=== PATIENT | female | born 1935 | race Caucasian/White ===

== ENCOUNTER 2018-04-21 17:09 | Inpatient (IN) | payer MEDICARE ==
[2018-04-21] MEDS ORDERED: Bisacodyl 5 MG TAB PO PRN (17:51)
[2018-04-21] MEDS ORDERED: Senokot 8.6 MG TAB PO PRN (17:51)
[2018-04-21] MEDS: Acetaminophen 500 MG TAB PO SCH ×2 (18:30→23:29)
[2018-04-21] MEDS: Famotidine 20 MG TAB PO SCH (21:52)
[2018-04-21] MEDS: Cefuroxime Axetil 250 MG TAB PO SCH (21:52)
[2018-04-21] MEDS: traZODone HCl 50 MG TAB PO PRN (21:52)
[2018-04-22] MEDS: Acetaminophen 500 MG TAB PO SCH ×3 (05:23→17:14)
[2018-04-22] MEDS: Famotidine 20 MG TAB PO SCH ×2 (08:48→20:08)
[2018-04-22] MEDS: Multivit, Therapeutic 1 TAB PO SCH (08:48)
[2018-04-22] MEDS: Cefuroxime Axetil 250 MG TAB PO SCH ×2 (08:48→20:08)
[2018-04-22] MEDS: Ferrous Sulfate 325 MG TAB PO SCH (08:48)
[2018-04-22] MEDS: Calcium Carbonate + Vit D 1 TAB PO SCH (08:49)
--- NOTE | 2018-04-22 14:28 | HP ---
ATTENDING: Dr. Olga Gabriel PRIMARY CARE PHYSICIAN: Dr. Tran in [place]. REASON FOR ADMISSION: Skilled rehabilitation in [place] swing bed. HISTORY OF PRESENT ILLNESS/HOSPITAL COURSE: Ms. Mac is a very pleasant 82- year-old female who was transferred from [facility] in [place] to [place] for skilled rehab in [place] swing [facility]. The patient was recently admitted to [facility] for loss of consciousness that led to a fall. She reports that she was walking on stairs when she felt weak and woke up, had fallen down in the stairs. She was at that time in [place], [place] and was sent initially to the emergency room where she was found to have a fracture of the left wrist and had a splint. During that fall incident the patient also hit her head on the floor from a standing position. She was then told to see a primary doctor, Dr. Tran in a week or so. The patient during that time of incident also hit her head and had a CT scan and was told to have a subdural hematoma. She was initially observed in [place], [place] and was conservatively managed. She was sent home with recommendation to follow up with her PCP within a week. The patient found out when she came back home that her PCP was out on vacation thus she went to [facility] in [place] for further evaluation. She had a brain CT scan over at [facility] and was found to have an acute small anterior loculated left falcine hemorrhage measuring 14.[address] Lee was consulted for this. The patient was conservatively managed by neurosurgeon. At that time, the patient was also noted to have significant elevation of blood pressure that requires Cardizem drip and ICU observation. There was a Cardio consultation at that time given the history of frequent falls. She was seen by Dr. Ruby for Cardiology and echocardiogram was ordered which showed left ventricular systolic function. Otherwise, no other evidence of conduction disease. Carotid Doppler study was likewise ordered which showed no evidence of hemodynamically significant stenosis. A suspicion of orthostatic dizziness was highly considered by Cardiology versus possible overuse of narcotic or analgesics. Thus, the patient used only Tylenol in the hospital per patient's report due to the reported possible overuse on narcotics. After observation in the ICU the patient was eventually transferred to a regular room and did well. She underwent a splint swab and replacement of the left distal radius fracture and ulnar gutter splint for left distal radius metaphyseal fracture on 2017 that was done by LION Dill. The patient reports that she has a history of episodic dizzy spells described as lightheadedness noticeably with head movement. She reports that today that this is not new to her. She denies tinnitus or syncopal episode except for the one time fall as described above. The patient remains generally weak and deemed to benefit more for further rehab in [facility] prior to going back to the home environment. Prior to discharge, the patient was reported to have an episode of vomiting after she got transferred and felt dizzy. She was given antiemetic prior to discharge and did well. When admitted the patient reports she is feeling a lot better. No significant recurrence of nausea, vomiting nor abdominal pain. Denies chest pain or shortness of breath or pain with breathing. She is hemodynamically stable upon admission. PAST MEDICAL HISTORY: Hypertension, multiple fractures, chronic insomnia, GERD , anemia. PAST SURGICAL HISTORY: 1. 05/05/2015. Dr. Tomlinson performed da Samra right colectomy for a right colon, large right polyp mass. 2. 08/17/2015. Dr. 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 3. Dr. Zafar on 12/29/2015 did a right shoulder closed reduction of fracture dislocation. 4. 12/30/2015 the patient had a left thumb metacarpal and distal phalanx fracture, closed treatment with a splint and cast. 5. She has had a total abdominal hysterectomy and bilateral salpingo- oophorectomy, unrecalled date. 6. Pathology in her colon resection 05/05/2015 revealed TVA with free margins. The breast specimen revealed DCIS negative, multifocal ductal carcinoma in situ, TIS N0 M0. FAMILY HISTORY: Noncontributory. SOCIAL HISTORY: , nonsmoker, no alcohol, no illicit drug use except from prescription narcotics. MEDICATIONS: Acetaminophen 1000 mg p.o. q.6 hours, Bisacodyl Dulcolax 10 mg p.o. daily p.r.n., calcium carbonate 1 tab p.o. daily, cefdinir 250 mg p.o. q.12 hours for 7 days, famotidine 20 mg p.o. b.i.d., ferrous sulfate 325 mg p.o. daily, multivitamins 1 tab daily, pantoprazole 40 mg p.o. daily, sennoside 2 tablets at bedtime p.r.n., tramadol 50 hourly p.r.n., trazodone 50 mg p.o. q.8h. p.r.n. ALLERGIES: SULFA. REVIEW OF SYSTEMS: GENERAL: Denies fever, chills, reports general weakness, fatigue, no loss of appetite. HEENT: No acute visual changes or hearing changes. Reports chronic intermittent dizzy spells as per HPI. Denies tinnitus or hearing changes. RESPIRATORY: No cough, sputum production, bloody sputum, pain with breathing, wheezing, shortness of breath. CARDIAC: No chest pain, palpitations, dyspnea on exertion, PND, she reports intermittent leg edema. GASTROINTESTINAL: Reports episodic nausea and vomiting. Reports constipation. No abdominal pain, diarrhea, rectal bleeding. GENITOURINARY: No dysuria or hematuria. Reports frequency with urgency. NEURO: No focal numbness, focal weakness, no headaches. PSYCHIATRIC: Denies depressive symptoms, anxiety. Reports insomnia. SKIN: Denies ulcers, skin lesions or rash. HEMATOLOGY: Reports easy bruising and multiple bruises from the fall. MUSCULOSKELETAL: Reports joint pains, swelling. No myalgia. PHYSICAL EXAMINATION: VITAL SIGNS: Blood pressure 174/79, temperature 97.8, pulse 82, respirations 16 , and temperature 97 at room air. GENERAL: Patient is awake, alert, oriented x3, not in distress, generally weak looking, frail, elderly, comfortably lying in bed, in no acute distress. is at bedside. SKIN: Huge hematoma on the right side of the frontal region. HEENT: PERRLA. Intact EOM. Nonicteric sclerae. Oral mucosa is moist. Tongue in the midline. NECK: Supple. No LAD, no swelling. Full ROM. CHEST: Normal excursion, clear to auscultation bilaterally. CARDIAC: RRR. Normal S1 and S2. No murmurs. ABDOMEN: Obese, soft, nondistended, normoactive bowel sounds. Nontender. Negative CVA tenderness bilaterally. EXTREMITIES: No edema, no cyanosis. SKIN: Good skin turgor, multiple bruises from head to toe. PSYCHIATRIC: Appears calm, appropriate demeanor and affect, cooperative, interactive. NEUROLOGIC: Nonfocal. Gait unsteady, 1-2 man assist for transfers. LABORATORY AND TESTS: 1. Left hand x-ray, chronic changes in the first carpometacarpal joint space distal ulnar fracture. No definite fracture with regards to the bones in the hands or wrist 04/18/2018. 2. Left forearm, 2 views, distal ulnar fracture, possible hamate bone fracture. 3. Facial bone CT, no evidence of facial bone fracture. Mild basilar invagination probably chronic and stable in this patient. 4. Cervical CT, normal CT. Incidentally noted atherosclerotic calcification of the distal common carotid artery seen. 5. Brain CT; noncontrast, acute small anteriorly located left parafalcine hemorrhage measuring 14.5 mm. Subacute versus chronic. A small bifrontal subdural collections. Mild cerebral volume loss. Chronic small vessel ischemic changes. Large scalp hematoma posteriorly at the vertex. 6. Chest x-ray on 04/18/2018. No lobar consolidation, evidence of CHF. 7. MRI of the brain noncontrast on 04/19/2018, small subdural hematoma along the inner hemispheric falx anteriorly is redemonstrated as a chronic subdural hematoma/subdural hygroma formation overlying each frontal convexity. Prominent posterior scalp hematoma. No acute territorial infarction or midline shift. Echocardiogram revealed normal left ventricular systolic function, estimated ejection fraction 60-65% on 04/19/2018. RECENT LABORATORY: 04/19/2018 - WBC is 13.7, hemoglobin 11.8, hematocrit 34.6, platelets 296. CBC in 04/21/2018, WBC 9.2, hemoglobin 12.1, hematocrit 36.3, platelets 329. PT on 04/18/2018; PT 13.2, INR 1.0. PTT 26. Basic metabolic panel 04/20/2018; sodium 123, chloride 92, potassium 4.6, BUN 16, creatinine 0.81, estimated GFR 68, glucose 97, calcium 9.2. Serum osmolality 264. Magnesium 1.9. TSH on 04/21/2018 1.46. Cortisol 04/21/2018 was 18. Basic metabolic panel in 04/21/2018; sodium 125, potassium 3.9, BUN 14, creatinine 0.78, estimated GFR 71 , glucose 118, calcium 9.4, phosphorus 2.5, magnesium 1.7. On 04/20/2018 potassium 2.9, sodium 123, chloride 90, BUN 13, creatinine 0.72. UDS on 04/18/2018, benzos detected. Salicylate is less than 8, acetaminophen less than 6. Plasma alcohol less than 10. ASSESSMENT: 1. Physical deconditioning. 2. General weakness secondary to recent hospitalization. 3. Urinary tract infection on cefdinir. 4. Closed fracture of the left distal radius metaphyseal fracture, closed, status post splint swab and replacement of left distal radius fracture and ulnar gutter splint. 5. Hypertension. 6. Syncope, possible orthostatic versus possible overuse of narcotic analgesics. 7. Hyponatremia, asymptomatic. Overall, sodium level is improving in a slow manner. 8. Subdural hematoma, status post fall. PLAN: Continue current medications as modified per list. VTE prophylaxis with SCD. The patient is not a good candidate for anticoagulant of any kind secondary to history of subdural hematoma. Keep splint in the left arm and to follow up with Ortho in 2 weeks. Follow up with Neurosurgeon in 3-4 weeks. Hyponatremia is being treated with fluid restriction and allow the patient to Gatorade. Hypokalemia is resolved. We will continue to monitor renal function and electrolyte level. PT, OT evaluate and treat. Possible ENT as outpatient consult if dizzy spell persists. CODE STATUS: The patient reports full code in the presence of her who acts as the surrogate decision maker. concurs with patient's wishes. Further recommendations depending on the hospital course. Estimated length of stay 3-4 weeks. MTDD
[2018-04-22] MEDS: traZODone HCl 50 MG TAB PO PRN (20:08)
[2018-04-23] MEDS: Acetaminophen 500 MG TAB PO SCH ×5 (00:21→23:19)
[2018-04-23] MEDS: Cefuroxime Axetil 250 MG TAB PO SCH ×2 (08:52→20:55)
[2018-04-23] MEDS: Famotidine 20 MG TAB PO SCH ×2 (08:52→20:55)
[2018-04-23] MEDS: Multivit, Therapeutic 1 TAB PO SCH (08:52)
[2018-04-23] MEDS: Ferrous Sulfate 325 MG TAB PO SCH (08:52)
[2018-04-23] MEDS: Calcium Carbonate + Vit D 1 TAB PO SCH (08:52)
[2018-04-23] MEDS: traMADol HCl 50 MG TAB PO PRN (15:18)
[2018-04-24] MEDS: Acetaminophen 500 MG TAB PO SCH ×4 (05:48→23:49)
[2018-04-24] MEDS: Cefuroxime Axetil 250 MG TAB PO SCH ×2 (08:09→20:03)
[2018-04-24] MEDS: Calcium Carbonate + Vit D 1 TAB PO SCH (08:09)
[2018-04-24] MEDS: Multivit, Therapeutic 1 TAB PO SCH (08:09)
[2018-04-24] MEDS: Famotidine 20 MG TAB PO SCH ×2 (08:09→20:03)
[2018-04-24] MEDS: Ferrous Sulfate 325 MG TAB PO SCH (08:09)
[2018-04-24] MEDS: traZODone HCl 50 MG TAB PO PRN (20:03)
[2018-04-25] MEDS: Acetaminophen 500 MG TAB PO SCH ×4 (05:01→23:31)
[2018-04-25] MEDS: traMADol HCl 50 MG TAB PO PRN ×2 (05:02→20:29)
[2018-04-25] MEDS: Multivit, Therapeutic 1 TAB PO SCH (09:08)
[2018-04-25] MEDS: Calcium Carbonate + Vit D 1 TAB PO SCH (09:08)
[2018-04-25] MEDS: Ferrous Sulfate 325 MG TAB PO SCH (09:08)
[2018-04-25] MEDS: Cefuroxime Axetil 250 MG TAB PO SCH ×2 (09:08→20:29)
[2018-04-25] MEDS: Famotidine 20 MG TAB PO SCH ×2 (09:08→20:30)
[2018-04-25] MEDS: traZODone HCl 50 MG TAB PO PRN (23:33)
[2018-04-26] MEDS: Acetaminophen 500 MG TAB PO SCH ×3 (05:48→17:01)
[2018-04-26] MEDS: Calcium Carbonate + Vit D 1 TAB PO SCH (09:14)
[2018-04-26] MEDS: Multivit, Therapeutic 1 TAB PO SCH (09:14)
[2018-04-26] MEDS: Ferrous Sulfate 325 MG TAB PO SCH (09:14)
[2018-04-26] MEDS: Cefuroxime Axetil 250 MG TAB PO SCH ×2 (09:14→20:18)
[2018-04-26] MEDS: Famotidine 20 MG TAB PO SCH ×2 (09:14→20:18)
[2018-04-26] MEDS: traMADol HCl 50 MG TAB PO PRN ×2 (09:15→17:00)
[2018-04-27] MEDS: Acetaminophen 500 MG TAB PO SCH ×7 (02:15→22:28)
[2018-04-27] MEDS: Cefuroxime Axetil 250 MG TAB PO SCH ×2 (08:33→20:06)
[2018-04-27] MEDS: Multivit, Therapeutic 1 TAB PO SCH (08:33)
[2018-04-27] MEDS: Ferrous Sulfate 325 MG TAB PO SCH (08:33)
[2018-04-27] MEDS: Famotidine 20 MG TAB PO SCH ×2 (08:33→20:06)
[2018-04-27] MEDS: Calcium Carbonate + Vit D 1 TAB PO SCH (08:33)
[2018-04-27] MEDS: traMADol HCl 50 MG TAB PO PRN (08:34)
[2018-04-28] MEDS: traMADol HCl 50 MG TAB PO PRN ×2 (08:25→17:48)
[2018-04-28] MEDS: Cefuroxime Axetil 250 MG TAB PO SCH ×2 (08:26→20:58)
[2018-04-28] MEDS: Calcium Carbonate + Vit D 1 TAB PO SCH (08:26)
[2018-04-28] MEDS: Multivit, Therapeutic 1 TAB PO SCH (08:26)
[2018-04-28] MEDS: Famotidine 20 MG TAB PO SCH ×2 (08:26→20:58)
[2018-04-28] MEDS: Acetaminophen 500 MG TAB PO SCH ×3 (08:26→17:48)
[2018-04-28] MEDS: Ferrous Sulfate 325 MG TAB PO SCH (08:26)
[2018-04-29] MEDS: Acetaminophen 500 MG TAB PO SCH ×5 (00:48→21:49)
[2018-04-29] MEDS: Multivit, Therapeutic 1 TAB PO SCH (08:21)
[2018-04-29] MEDS: Ferrous Sulfate 325 MG TAB PO SCH (08:21)
[2018-04-29] MEDS: Cefuroxime Axetil 250 MG TAB PO SCH ×2 (08:21→21:03)
[2018-04-29] MEDS: Famotidine 20 MG TAB PO SCH ×2 (08:21→21:03)
[2018-04-29] MEDS: Calcium Carbonate + Vit D 1 TAB PO SCH (08:21)
[2018-04-29] MEDS: traMADol HCl 50 MG TAB PO PRN (15:03)
[2018-04-29] MEDS: traZODone HCl 50 MG TAB PO PRN (21:46)
[2018-04-30] MEDS: Acetaminophen 500 MG TAB PO SCH ×3 (05:13→16:55)
[2018-04-30] MEDS: Multivit, Therapeutic 1 TAB PO SCH (08:07)
[2018-04-30] MEDS: Ferrous Sulfate 325 MG TAB PO SCH (08:07)
[2018-04-30] MEDS: Famotidine 20 MG TAB PO SCH ×2 (08:08→19:53)
[2018-04-30] MEDS: Cefuroxime Axetil 250 MG TAB PO SCH ×2 (08:08→19:53)
[2018-04-30] MEDS: Calcium Carbonate + Vit D 1 TAB PO SCH (08:08)
[2018-04-30] MEDS: traMADol HCl 50 MG TAB PO PRN ×2 (08:50→16:55)
[2018-05-01] MEDS: Acetaminophen 500 MG TAB PO SCH ×5 (00:22→23:55)
[2018-05-01] MEDS: traMADol HCl 50 MG TAB PO PRN ×2 (04:03→15:53)
[2018-05-01] MEDS: Multivit, Therapeutic 1 TAB PO SCH (08:43)
[2018-05-01] MEDS: Calcium Carbonate + Vit D 1 TAB PO SCH (08:43)
[2018-05-01] MEDS: Famotidine 20 MG TAB PO SCH ×2 (08:43→19:49)
[2018-05-01] MEDS: Ferrous Sulfate 325 MG TAB PO SCH (08:43)
[2018-05-01] MEDS: Cefuroxime Axetil 250 MG TAB PO SCH (08:43)
[2018-05-01] MEDS ORDERED: traMADol HCl 50 MG TAB PO PRN (18:13)
[2018-05-01 19:25] VITALS: BMI 26.3
[2018-05-01] MEDS: traZODone HCl 50 MG TAB PO PRN (19:49)
[2018-05-02 08:25] VITALS: TEMP 97.6
[2018-05-02] MEDS: Multivit, Therapeutic 1 TAB PO SCH (08:37)
[2018-05-02] MEDS: Famotidine 20 MG TAB PO SCH (08:37)
[2018-05-02] MEDS: Ferrous Sulfate 325 MG TAB PO SCH (08:38)
[2018-05-02] MEDS: Acetaminophen 500 MG TAB PO SCH ×2 (08:38→13:23)
[2018-05-02] MEDS: Calcium Carbonate + Vit D 1 TAB PO SCH (08:38)
[2018-05-02 17:16] VITALS: BP 138/80
--- NOTE | 2018-05-03 20:58 | DIS ---
DATE OF ADMISSION: 04/21/2018 DATE OF DISCHARGE: 05/02/2018 PRIMARY CARE PHYSICIAN: Tay Tran MD, [place]. NEUROSURGEON: Leslie Lee MD ORTHOPEDIST: Geovanny Zafar MD REASON FOR ADMISSION: Skilled rehabilitation in [place] swing bed. DISPOSITION: Home with spouse. CONDITION ON DISCHARGE: Stable. MEDICATIONS: Acetaminophen 1000 mg p.o. q.6 hours, Dulcolax 10 mg p.o. daily p.r.n., calcium carbona te 1 tablet daily, omeprazole 40 mg p.o. daily, ferrous sulfate 325 mg p.o. daily, multivitamins 1 ta b p.o. daily, sennosides 2 tablets at bedtime p.r.n., tramadol 50 mg p.o. q.8 hours p.r.n. for pain. DIET: Regular. ACTIVITY: To use rolling walker at all times. Fall precautions. FOLLOWUP: 1. Follow up with PCP, Dr. Tran, on 05/08/2018 at 11:[address] scan of the head without contrast on 05/07/2018 at 10:00 a.m. in [facility]. Results to be followed by PCP and to coordinate with the neurosurgeon, Dr. Lee, for [facility] recommendations. Neurosurgeon will get the CT scan results by 05/12/2018 and will coordinate with PCP for followup recommendations. 3. Follow up with Dr. Zafar for Orthopedic care on Saturday05/05/2018 at 1:45 p.m. DIAGNOSES: 1. Physical deconditioning. 2. General weakness secondary to recent hospitalization. 3. Closed fracture of the left distal radius metaphyseal; status post splint, swab and replacement o f left distal radius fracture, and ulnar gutter splint. 4. Subdural hematoma, status post fall. 5. History of syncope and dizziness, deemed orthostatic hypotension. 6. History of hyponatremia, mild, asymptomatic. HISTORY OF PRESENT ILLNESS AND HOSPITAL COURSE: Ms. Mac is a very pleasant 82-year-old f emale, who was transferred per [facility] in [place] to [facility] for skilled rehabilitation on 04/21/2018. The patient was reported to have a fall prior to her [facility] hospitalization. She was initially admitted while in [place], [place] where the fall from the stairs happened. At that time, she was diagnosed with subdural hematoma, conservatively managed. Daquan motron followed up in the ER in [facility] in the absence of her PCP. At that time, a CT scan of e head was re-done and was told to have subdural hematoma with an acute small anterior loculated left falcine hemorrhage measuring 14.[address] Lee was consulted for Neurosurgery. Dr. Lee conservatively managed the patient. During that hospitalization, the patient also had significant el evation of blood pressure that required Cardizem drip at ICU for observation. Cardiology was consult ed at that time. She was seen by Dr. Ruby for Cardiology care and echocardiogram was ordered antonio t showed normal left ventricular systolic function. Carotid Doppler study was likewise ordered, whic h showed no evidence of hemodynamically significant stenosis. Suspicion of orthostatic dizziness was highly considered by Cardiology versus possible overuse of narcotic or analgesic. The patient was r ecommended to use only Tylenol in the hospital for pain control scheduled t.i.d. She uses tramadol a t times for severe pain. After the patient was deemed stable, she was transferred to a regular room at that time. The patient also underwent a splint swab replacement of the left distal radius fractur e and ulnar gutter splint for left distal radius metaphyseal fracture on 04/21/2018. This fracture w as sustained secondary to that fall as well. The patient was recommended to follow up with Dr. Greta lema for re-evaluation post hospitalization. At that time, the patient remained generally weak and efraín med to benefit more for further rehabilitation in [place] [facility], thus she was transferred. The patient did well during her rehab post-hospitalization. Overall functional status and strength m arkedly improved. She was walking about 225 feet x2 prior to discharge using her rolling walker. e patient still reports intermittent dizzy spell mostly when she is in a standing position or walking and sudden change of position. Her blood pressure over the course of rehabilitation stay was notice ably higher in a sitting position. Prior to discharge, her blood pressure has been stable in the 130 s over 70s to 80s obtained in a standing position. Of note, the patient is currently not on antihype rtensive secondary to orthostatic hypotension that was deemed to cause her fall causing the complicat ions. During the course, the patient had never complained of any headache, never had recurrence of n ear syncope or syncopal episodes. There were no significant neurologic deficits or myelopathy noted. She was recommended to repeat a CT scan of the head without contrast as outpatient. The results of the CT scan will be reviewed by Dr. Lee on the of this month for further recommendations if needs to be seen or not. Since the patient is going home today per request and who serves as the primary urologic nurse of the patient is comfortable with this, they are highly recommended to pastrycook rdinate with her PCP, Dr. Tran, for the order and results of the CT scan of the head to know [facility] recommendations of the neurosurgeon. I had a lengthy discussion with the spouse today prior to melinda caceres, who verbalizes full understanding. Vital signs prior to discharge, blood pressure 138/80, temperature 97.6, pulse 76, respirations 16, O 2 saturation 96% at room air, weight 163 pounds, height 5 feet 6 inches. Time spent in this discharge in examining the patient and coordinating care, 38 minutes.
== END 2018-05-02 18:09 | disposition home or self-care (01) | DRG 948 ==
LOC: MADMS 17:09
PROVIDERS: ADMIT Family Medicine; ATTEND Family Medicine
DX: R53.1 Weakness (principal); N39.0 Urinary tract infection, site not specified; E87.1 Hypo-osmolality and hyponatremia; I10 Essential (primary) hypertension; K21.9 Gastro-esophageal reflux disease without esophagitis; S52.592D Other fractures of lower end of left radius, subsequent encounter for closed fracture with routine healing; S06.5X0D Traumatic subdural hemorrhage without loss of consciousness, subsequent encounter; I95.1 Orthostatic hypotension; Z85.3 Personal history of malignant neoplasm of breast; Z88.2 Allergy status to sulfonamides; Z79.899 Other long term (current) drug therapy; Z90.49 Acquired absence of other specified parts of digestive tract; W10.9XXD Fall (on) (from) unspecified stairs and steps, subsequent encounter
CPT/HCPCS: G8978-GP-CM; G8979-GP-CJ

== ENCOUNTER 2018-05-07 10:14 | Outpatient (CLI) | payer MEDICARE ==
--- NOTE | 2018-05-07 11:20 | CT ---
CT OF HEAD NONCONTRAST: COMPARISON: Reference is made to 04/19/18 brain MRI. CLINICAL HISTORY: Prior fall with head injury, subdural hematoma. FINDINGS: There is a prominent-sized posterior scalp hematoma. There is no acute intracranial hemorrhage, mass effect, or midline shift. Mild to moderate chronic microvascular ischemic disease of the cerebral w abiola matter is present. No acute fluid level of the imaged paranasal sinuses. IMPRESSION: 1. No acute intracranial hemorrhage or mass effect. 2. Prominent-sized scalp hematoma. 3. Mild to moderate chronic ischemic disease. POS: [facility]
== END 2018-05-07 10:15 | disposition home or self-care (01) ==
LOC: MADCT 10:14
PROVIDERS: ATTEND Family Medicine
DX: S06.5X9D Traumatic subdural hemorrhage with loss of consciousness of unspecified duration, subsequent encounter (principal)
CPT/HCPCS: 70450

== ENCOUNTER 2021-12-25 08:39 | Emergency (ER) | payer MEDICARE ==
[2021-12-25] MEDS ORDERED: Bacitracin 1 PK ONE (09:30)
[2021-12-25] MEDS ORDERED: TETANUS, DIPHTHERIA TOX,ADULT (TDVAX) 0.5 ML VIAL IM ONE ×3 (09:30→09:59)
== END 2021-12-25 10:09 | disposition home or self-care (01) ==
LOC: MADERS 08:39
DX: S51.811A Laceration without foreign body of right forearm, initial encounter (principal); W18.2XXA Fall in (into) shower or empty bathtub, initial encounter; Z23 Encounter for immunization
CPT/HCPCS: 90471; 90714

== ENCOUNTER 2023-09-08 12:04 | Emergency (ER) | payer MEDICARE ==
[2023-09-08] MEDS ORDERED: Ketorolac Tromethamine 30 MG/ML VIAL ONE (12:49)
[2023-09-08] MEDS ORDERED: Sodium Chloride 0.9% 1,000 ML ONE (12:49)
[2023-09-08] MEDS ORDERED: Metoclopramide HCl 10 MG/2 ML VIAL ONE (12:49)
[2023-09-08 13:19] LABS: #Basophils 0.1 thou/uL (0.0-0.2); #Lymphocytes 1.4 thou/uL (1.20-3.40); #Monocytes 0.5 thou/uL (0.11-0.59); #Neutrophils 6.9 thou/uL (1.40-6.50); %Basophils 0.7 % (0.0-1.0); %Eosinophils 0.3 % (0.0-10.0); %Lymphocytes 15.4 % (21.0-51.0); %Monocytes 5.9 % (0.0-10.0); %Neutrophils 77.7 % (42.0-75.0); White Blood Cell (WBC) Count 8.9 10x3/uL (4.8-10.8)
[2023-09-08 13:26] LABS: Hematocrit 29.8 % (36.0-47.0); Mean Corpuscular HGB CONC 33.6 g/dL (32.0-36.0); Mean Corpuscular Hemoglobin 31.5 pg (27.0-31.0); Mean Corpuscular Volume 93.5 fl (78.0-98.0); Mean Platelet Volume 8.5 fL (7.4-10.4); Platelet Count 216 10x3/uL (130-400); RBC Distribution Width 15.5 % (11.5-14.5); Red Blood Cell (RBC) Count 3.19 mill/uL (4.20-5.40)
[2023-09-08 13:28] LABS: ALT (SGPT) 25 U/L (8-55); AST (SGOT) 14 U/L (5-34); Alkaline Phosphatase 117 U/L (40-110); Anion Gap 16 mmol/L (10-20); BUN (Urea Nitrogen) 30 mg/dL (9.8-20.1); Bilirubin, Total 0.2 mg/dL (0.2-1.2); Calc. Creatinine Clearance 0 mL/min (70-130); Calcium 8.6 mg/dL (7.8-10.44); Carbon Dioxide 19 mmol/L (23-31); Chloride 107 mmol/L (98-107); Estimated GFR 69; Globulin 2.3 g/dL (2.4-3.5); Glucose 102 mg/dL (83-110); Protein, Total 6.3 g/dL (5.8-8.1); Sodium 138 mmol/L (136-145)
== END 2023-09-08 14:38 | disposition home or self-care (01) ==
LOC: MADERS 12:04
DX: R51.9 Headache, unspecified (principal); J32.9 Chronic sinusitis, unspecified
CPT/HCPCS: 70450; 80053; 85025; 96361; 96374; 96375; J1885; J2765; J7050

== ENCOUNTER 2023-10-26 08:22 | Emergency (ER) | payer MEDICARE ==
[2023-10-26 09:01] LABS: Bilirubin Negative (Negative); Blood, Urine Small (Negative); Glucose, Urine (Dipstick) Negative (Negative); Ketone, Urine Negative (Negative); Leukocyte Large (Negative); Nitrite Negative (Negative); Protein, Urine (Dipstick) 30 mg/dL (Neg-Trace); Urobilinogen 0.2 mg/dL (Less than 2)
[2023-10-26 09:04] LABS: Clarity Cloudy (Clear)
[2023-10-26] MEDS ORDERED: Cefepime 1 GM VIAL ONE (09:06)
[2023-10-26] MEDS ORDERED: Sodium Chloride 0.9% 100 ML ONE (09:06)
[2023-10-26 09:11] LABS: Bacteria/HPF Rare-Few HPF (None Seen); CAUTI Indications for Culture Dysuria,urgency,freq; RBC/HPF 0-3 HPF (0-3); Squamous Epithelial 0-3 HPF (0-3); Urine Culture Reflex Yes Yes; WBC/HPF Greater Than 50 HPF (0-3)
== END 2023-10-26 09:50 | disposition home or self-care (01) ==
LOC: MADERS 08:22
DX: N39.0 Urinary tract infection, site not specified (principal); I10 Essential (primary) hypertension
CPT/HCPCS: 81001; 87086; 96365; J0692; J3490